=== PATIENT | female | born 1985 | race Caucasian/White ===

== ENCOUNTER 2018-10-12 13:09 | Inpatient (IN) | payer MEDICAID ==
[2018-10-12] MEDS ORDERED: LORAZEPAM 2 MG/ML VIAL IV ONE (14:17)
[2018-10-12 14:41] LABS: HEMATOCRIT 43.1 % (35.0-47.0); HEMOGLOBIN 14.8 gm/dl (11.6-16.0); MEAN CELL VOLUME 91.7 fl (81-97); MEAN CORPUSCULAR HEMOGLOBIN 31.5 pg (27-33); MEAN CORPUSCULAR HGB CONC 34.3 g/dl (32-36); PLATELET COUNT 341 K/uL (130-400)
[2018-10-12] MEDS: MVI, ADULT NO.4 WITH VIT K 10 ML, THIAMINE HCL IV 100 MG in 0.9 % SODIUM CHLORIDE 1000M... IV SCH ×6 (14:44→21:25)
--- NOTE | 2018-10-12 14:51 | Emergency Department Record ---
History of Present Illness - General Chief Complaint: Detox Evaluation Stated Complaint: ALCOHOL WITHDRAWAL Time Seen by Provider: 10/12/18 14:04 Source: Patient Mode of Arrival: Ambulatory Limitations: No limitations - History of Present Illness Initial Comments: pt is quitting alcohol cold . she has the shakes. she drinks 2-3 fifths a day since 2010. she has seizures when she stops drinking. she is havin l sided abd pain. she has a hx of pancreatitis. she has been trying to get into detox center the last 2 days MD Complaint: Other Onset/Timin -: Days(s) Associated Psychiatric Symptoms: None History of same: Yes Quality: Constant Improves With: None Worsens With: None Context: Other Associated Symptoms: Nausea, Vomiting Treatments Prior to Arrival: None - [place] Coma Scale Eye Response: (4) Open spontaneously Motor Response: (6) Obeys commands Verbal Response: (5) Oriented [place] Total: 15 - Related Data Home Medications Medication Instructions Recorded Confirmed Last Taken Lorazepam [Ativan] 0.5 mg PO ASDIR 10/12/18 10/12/18 Unknown Allergies Allergy/AdvReac Type Severity Reaction Status Date / Time No Known Drug Allergies Allergy Verified 10/12/18 13:54 Review of Systems Reviewed: No additional complaints except as noted below Constitutional: Reports: As per HPI. Denies: Chills, Fever, Malaise, Night sweats, Weakness, Weight change Eyes: Reports: As per HPI. Denies: Eye discharge, Eye pain, Photophobia, Vision change ENT: Reports: As per HPI. Denies: Congestion, Dental pain, Ear pain, Epistaxis , Hearing loss, Throat pain Respiratory: Reports: As per HPI. Denies: Cough, Dyspnea, Hemoptysis, Stridor, Wheezes Cardiovascular: Reports: As per HPI. Denies: Arrhythmia, Chest pain, Dyspnea on exertion, Edema, Murmurs, Orthopnea, Palpitations, Paroxysmal nocturnal dyspnea, Rheumatic Fever, Syncope Endocrine: Reports: As per HPI. Denies: Fatigue, Heat or cold intolerance, Polydipsia, Polyuria Gastrointestinal: Reports: As per HPI, Abdominal pain. Denies: Constipation, Diarrhea, Hematemesis, Hematochezia, Melena, Nausea, Vomiting Genitourinary: Reports: As per HPI. Denies: Abnormal menses, Discharge, Dyspareunia, Dysuria, Frequency, Hematuria, Incontinence, Retention, Urgency Musculoskeletal: Reports: As per HPI. Denies: Arthralgia, Back pain, Gout, Joint swelling, Myalgia, Neck pain Skin: Reports: As per HPI. Denies: Bruising, Change in color, Change in hair/ nails, Lesions, Pruritus, Rash Neurological: Reports: As per HPI, Tremors. Denies: Abnormal gait, Confusion, Headache, Numbness, Paresthesias, Seizure, Tingling, Vertigo, Weakness Psychiatric: Reports: As per HPI. Denies: Anxiety, Auditory hallucinations, Depression, Homicidal thoughts, Suicidal thoughts, Visual hallucinations Hematological/Lymphatic: Reports: As per HPI. Denies: Anemia, Blood Clots, Easy bleeding, Easy bruising, Swollen glands Past Medical History - SOCIAL HISTORY Smoking Status: Current every day smoker Alcohol Use: Heavy Drug Use: None - RESPIRATORY Hx Respiratory Disorders: Yes Hx Asthma: Yes Hx COPD: Yes - CARDIOVASCULAR Hx Cardio Disorders: No - NEURO Hx Neuro Disorders: No - GI Hx GI Disorders: No - Hx Genitourinary Disorders: Yes Hx Kidney Stones: Yes - ENDOCRINE Hx Endocrine Disorders: No - MUSCULOSKELETAL Hx Musculoskeletal Disorders: No - PSYCH Hx Psych Problems: Yes Hx Depression: Yes (ptsd) Family Medical History Any Significant Family History?: Yes Hx Alcohol Use: Grandparents Physical Exam - General General Appearance: Alert, Oriented x3, Cooperative, Moderate distress - Head Head exam: Normal inspection - Eye Eye exam: Normal appearance, PERRL, EOMI Pupils: Normal accommodation - ENT ENT exam: Normal exam, Mucous membranes moist, Normal external ear exam, Normal orophraynx Ear exam: Normal external inspection. negative: External canal tenderness Nasal Exam: Normal inspection. negative: Discharge, Sinus tenderness Mouth exam: Normal external inspection, Tongue normal Teeth exam: Normal inspection. negative: Dental caries Throat exam: Normal inspection. negative: Tonsillar erythema, Tonsillar exudate - Neck Neck exam: Normal inspection, Full ROM. negative: Tenderness - Respiratory Respiratory exam: Normal lung sounds bilaterally. negative: Respiratory distress - Cardiovascular Cardiovascular Exam: Regular rate, Normal rhythm, Normal heart sounds - GI/Abdominal GI/Abdominal exam: Soft, Normal bowel sounds. negative: Tenderness - Rectal Rectal exam: Deferred - exam: Deferred - Extremities Extremities exam: Normal inspection, Full ROM, Normal capillary refill. negative: Tenderness - Back Back exam: Reports: Normal inspection, Full ROM. Denies: Muscle spasm, Rash noted, Tenderness - Neurological Neurological exam: Alert, CN II-XII intact, Normal gait, Oriented X3, Other ( tremors) - Psychiatric Psychiatric exam: Anxious, Depressed - Skin Skin exam: Dry, Intact, Normal color, Warm Course Vital Signs 10/12/18 13:45 Temperature 98.4 F Pulse Rate 89 Respiratory 24 Rate Blood Pressure 129/89 Pulse Ox 99 - Reevaluation(s) Reevaluation #1: 10/12/18 18:36 pt better w ativan and fluids Medical Decision Making - Lab Data Result diagrams: 10/12/18 14:15 10/12/18 14:15 Lab Results 10/12/18 Range/Units 14:15 WBC 6.0 (4.2-12.2) K/uL RBC 4.70 (3.80-5.40) M/uL Hgb 14.8 (11.6-16.0) gm/dl Hct 43.1 (35.0-47.0) % MCV 91.7 (81-97) fl MCH 31.5 (27-33) pg MCHC 34.3 (32-36) g/dl RDW 16.0 H (11.5-14.5) % Plt Count 341 (130-400) K/uL MPV 10.0 (7.4-10.4) fl Eosinophils % Not Reportable Basophils % Not Reportable Disposition Disposition: Admit Clinical Impression: Alcohol withdrawal Qualifiers: Complication of substance-induced condition: uncomplicated Qualified Code(s): F10.230 - Alcohol dependence with withdrawal, uncomplicated Disposition: Still a Patient at [facility] Decision to Admit: Admit from ER Decision to Admit Date: 10/12/18 Decision to Admit Time: 18:37 Forms: Patient Portal Access Quality - Quality Measures Quality Measures: N/A - Blood Pressure Screening Does Patient Have Any of the Following: No Blood Pressure Classification: Pre-Hypertensive BP Reading Systolic Measurement: 129 Diastolic Measurement: 89 Screening for High Blood Pressure: < Pre-Hypertensive BP, F/U Documented > [ [id number]] Pre-Hypertensive Follow-up Interventions: Follow-up with rescreen every year.
[2018-10-12 14:52] LABS: BLOOD UREA NITROGEN 4 mg/dL (6-20); CREATININE 0.5 mg/dL (0.5-0.9); EST GLOMERULAR FILTRATION RATE > 60 mL/min
[2018-10-12 14:53] LABS: LIPASE 29 U/L (13-60)
[2018-10-12 14:54] LABS: GLUCOSE,RANDOM 91 mg/dL (74-109)
[2018-10-12] MEDS ORDERED: POTASSIUM CHLORIDE 20 MEQ TABLET PO ONE (16:51)
[2018-10-12] MEDS ORDERED: KETOROLAC 30 MG/ML VIAL IVP ONE (16:55)
[2018-10-12 17:26] LABS: BENZODIAZEPINE SCREEN URINE DETECTED; HCG,QUALITATIVE URINE NEGATIVE (NEGATIVE); TRICYCLIC ANTIDEPRESSANT SCRN NOT DETECTED
[2018-10-12 17:27] LABS: AMPHETAMINE SCREEN URINE NOT DETECTED; BARBITURATE SCREEN URINE NOT DETECTED; COCAINE SCREEN URINE NOT DETECTED; METHADONE SCREEN URINE NOT DETECTED; METHAMPHETAMINE SCREEN NOT DETECTED; OPIATE SCREEN URINE NOT DETECTED; OXYCODONE SCREEN URINE NOT DETECTED; PHENCYCLIDINE SCREEN URINE NOT DETECTED; PROPOXYPHENE SCREEN URINE NOT DETECTED; THC SCREEN URINE NOT DETECTED
[2018-10-12 17:29] LABS: URINE APPEARANCE CLEAR; URINE BILIRUBIN NEGATIVE (NEGATIVE); URINE BLOOD NEGATIVE (NEGATIVE); URINE COLOR YELLOW; URINE GLUCOSE (UA) NEGATIVE (NEGATIVE); URINE KETONE 15 mg/dL (NEGATIVE); URINE LEUKOCYTE ESTERASE NEGATIVE (NEGATIVE); URINE NITRITE NEGATIVE (NEGATIVE)
[2018-10-12 17:33] LABS: URINE BACTERIA FEW; URINE EPITHELIAL CELLS >50 (FEW); URINE MUCUS HEAVY; URINE RBC 0 - 2 (NONE SEEN); URINE WBC 0 - 2 (0-2/hpf)
[2018-10-12] MEDS ORDERED: POTASSIUM CHLORIDE 20 MEQ/15ML CUP PO ONE (18:09)
[2018-10-12] MEDS ORDERED: LORAZEPAM 2 MG/ML VIAL IV PRN (19:48)
[2018-10-12] MEDS ORDERED: ONDANSETRON HCL IV 4 MG/2 ML VIAL IVP PRN (19:48)
[2018-10-12] MEDS: 0.9 % SODIUM CHLORIDE 1000ML 1,000 ML IV PRN (19:58)
--- NOTE | 2018-10-12 20:02 | History & Physical ---
History of Present Illness - Date of Service Date of Service for History & Physical: 10/13/18 - History of Present Illness Admitting Diagnosis: alcohol withdrawal History of Present Illness: Mrs. Olvera is a 33 y/o female who presents to the ED with tremors, agitation and lethargy after quitting alcohol a few days ago. The patient says that she has been drinking 2 liters of liquor for about 10 years and has struggled with alcohol addiction. She states that she stopped drinking and is trying to take better care of her health and has been trying to get into a rehab center. The patient says yesterday she began having abdominal pains, nausea and vomiting. She also reports having chills and headaches later in the day which have gotten worse. In the ED the patient had a CT scan of her abdomen/pelvis which showed a right adnexal cyst and hepatic steatosis. The patient is admitted to the general medical floor for her symptoms of acute alcohol withdrawal. PCP: Dr. Barclay Review of Systems Constitutional: Reports: As per HPI. Denies: Chills, Fever, Malaise, Night sweats, Weakness, Weight change Eyes: Reports: As per HPI. Denies: Eye discharge, Eye pain, Photophobia, Vision change ENT: Reports: As per HPI. Denies: Congestion, Dental pain, Ear pain, Epistaxis , Hearing loss, Throat pain Respiratory: Reports: As per HPI. Denies: Cough, Dyspnea, Hemoptysis, Stridor, Wheezes Cardiovascular: Reports: As per HPI. Denies: Arrhythmia, Chest pain, Dyspnea on exertion, Edema, Murmurs, Orthopnea, Palpitations, Paroxysmal nocturnal dyspnea, Rheumatic Fever, Syncope Endocrine: Reports: As per HPI. Denies: Fatigue, Heat or cold intolerance, Polydipsia, Polyuria Gastrointestinal: Reports: As per HPI, Abdominal pain. Denies: Constipation, Diarrhea, Hematemesis, Hematochezia, Melena, Nausea, Vomiting Genitourinary: Reports: As per HPI. Denies: Abnormal menses, Discharge, Dyspareunia, Dysuria, Frequency, Hematuria, Incontinence, Retention, Urgency Musculoskeletal: Reports: As per HPI. Denies: Arthralgia, Back pain, Gout, Joint swelling, Myalgia, Neck pain Skin: Reports: As per HPI. Denies: Bruising, Change in color, Change in hair/ nails, Lesions, Pruritus, Rash Neurological: Reports: As per HPI, Tremors. Denies: Abnormal gait, Confusion, Headache, Numbness, Paresthesias, Seizure, Tingling, Vertigo, Weakness Psychiatric: Reports: As per HPI. Denies: Anxiety, Auditory hallucinations, Depression, Homicidal thoughts, Suicidal thoughts, Visual hallucinations Hematological/Lymphatic: Reports: As per HPI. Denies: Anemia, Blood Clots, Easy bleeding, Easy bruising, Swollen glands Past Medical History - SOCIAL HISTORY Smoking Status: Current every day smoker Alcohol Use: Heavy Drug Use: None - RESPIRATORY Hx Respiratory Disorders: Yes Hx Asthma: Yes Hx COPD: Yes - CARDIOVASCULAR Hx Cardio Disorders: No - NEURO Hx Neuro Disorders: No - GI Hx GI Disorders: No - Hx Genitourinary Disorders: Yes Hx Kidney Stones: Yes - ENDOCRINE Hx Endocrine Disorders: No - MUSCULOSKELETAL Hx Musculoskeletal Disorders: No - PSYCH Hx Psych Problems: Yes Hx Depression: Yes (ptsd) Family Medical History Any Significant Family History?: Yes Hx Alcohol Use: Grandparents H&P Meds/Allergies - Allergies Allergies: Allergies Allergy/AdvReac Type Severity Reaction Status Date / Time No Known Drug Allergies Allergy Verified 10/12/18 13:54 - Home Medications Home Medications Medication Instructions Recorded Confirmed Last Taken Lorazepam [Ativan] 0.5 mg PO ASDIR 10/12/18 10/12/18 Unknown - Active Medications Active Medications: Current Medications Acetaminophen (Tylenol 500mg Tab) 1,000 mg PO Q6H PRN PRN Reason: PAIN - MILD(1-4)/FEVER Multivitamins/Minerals 10 ml/Thiamine HCl 100 mg/ Sodium Chloride 1,011 mls @ 0 mls/hr IV .Q0M JASVIR Last Infusion: 10/12/18 19:13 Dose: Infused Sodium Chloride () 1,000 mls @ 125 mls/hr IV .Q8H PRN PRN Reason: LARGE VOLUME IV Last Admin: 10/12/18 19:58 Dose: 125 mls/hr Lorazepam (Ativan) 1 mg IV Q6HR PRN PRN Reason: ALCOHOL WITHDRAWAL Ondansetron HCl (Zofran) 4 mg IVP Q6H PRN PRN Reason: NAUSEA Physical Exam - Vital Signs Vital Signs: Vital Signs - Last 24 Hrs Temp Pulse Pulse Resp BP BP Pulse Ox 10/12/18 16:30 89 18 114/84 10/12/18 13:45 98.4 F 89 24 129/89 99 - General General Appearance: Alert, Oriented x3, Cooperative, Moderate distress Limitations: No limitations - Head Head exam: Normal inspection - Eye Eye exam: Normal appearance, PERRL, EOMI Pupils: Normal accommodation - ENT ENT exam: Normal exam, Mucous membranes moist, Normal external ear exam, Normal orophraynx Ear exam: Normal external inspection. negative: External canal tenderness Nasal Exam: Normal inspection. negative: Discharge, Sinus tenderness Mouth exam: Normal external inspection, Tongue normal Teeth exam: Normal inspection. negative: Dental caries Throat exam: Normal inspection. negative: Tonsillar erythema, Tonsillar exudate - Neck Neck exam: Normal inspection, Full ROM. negative: Tenderness - Respiratory Respiratory exam: Normal lung sounds bilaterally. negative: Respiratory distress - Cardiovascular Cardiovascular Exam: Regular rate, Normal rhythm, Normal heart sounds - GI/Abdominal GI/Abdominal exam: Soft, Normal bowel sounds. negative: Tenderness - Rectal Rectal exam: Deferred - exam: Deferred - Extremities Extremities exam: Normal inspection, Full ROM, Normal capillary refill. negative: Tenderness - Back Back exam: Reports: Normal inspection, Full ROM. Denies: Muscle spasm, Rash noted, Tenderness - Neurological Neurological exam: Alert, CN II-XII intact, Normal gait, Oriented X3, Other ( tremors) - Psychiatric Psychiatric exam: Anxious, Depressed - Skin Skin exam: Dry, Intact, Normal color, Warm Results - Labs Result Diagrams: 10/12/18 14:15 10/13/18 06:27 Labs Last 24 Hours: Laboratory Results - last 24 hr 10/12/18 10/12/18 10/12/18 14:15 14:15 14:15 WBC 6.0 RBC 4.70 Hgb 14.8 Hct 43.1 MCV 91.7 MCH 31.5 MCHC 34.3 RDW 16.0 H Plt Count 341 MPV 10.0 Neutrophils % 69.0 Eosinophils % Not Reportable Basophils % Not Reportable Lymphocytes 16.0 Monocytes 14.0 H Basophils 1.0 VBG pH 7.58 H Sodium 135 L Potassium 3.2 L Chloride 92 L Carbon Dioxide 23.0 Anion Gap 20.0 H BUN 4 L Creatinine 0.5 Estimated GFR > 60 Random Glucose 91 Calcium 9.7 Magnesium Lipase 29 Urine Color Urine Appearance Urine pH Ur Specific [place] Urine Protein Urine Glucose (UA) Urine Ketones Urine Blood Urine Nitrite Urine Bilirubin Urine Urobilinogen Ur Leukocyte Esterase Urine RBC Urine WBC Ur Epithelial Cells Urine Bacteria Urine Mucus Urine HCG, Qual Urine Opiates Screen Ur Oxycodone Screen Urine Methadone Screen Ur Propoxyphene Screen Ur Barbituates Screen Ur Tricyclics Screen Ur Phencyclidine Scrn Ur Amphetamine Screen U Methamphetamines Scrn U Benzodiazepines Scrn Urine Cocaine Screen Urine Cannabis Screen Ethyl Alcohol 0.010 10/12/18 10/12/18 10/14/18 17:20 17:20 06:00 WBC RBC Hgb Hct MCV MCH MCHC RDW Plt Count MPV Neutrophils % Eosinophils % Basophils % Lymphocytes Monocytes Basophils VBG pH Sodium Potassium Chloride Carbon Dioxide Anion Gap BUN Creatinine Estimated GFR Random Glucose Calcium Magnesium Cancelled Lipase Urine Color Yellow Urine Appearance Clear Urine pH >=9.0 Ur Specific [place] 1.010 Urine Protein 30 mg/dl H Urine Glucose (UA) Negative Urine Ketones 15 mg/dl H Urine Blood Negative Urine Nitrite Negative Urine Bilirubin Negative Urine Urobilinogen 1.0 Ur Leukocyte Esterase Negative Urine RBC 0 - 2 Urine WBC 0 - 2 Ur Epithelial Cells >50 Urine Bacteria Few Urine Mucus Heavy Urine HCG, Qual Negative Urine Opiates Screen Not detected Ur Oxycodone Screen Not detected Urine Methadone Screen Not detected Ur Propoxyphene Screen Not detected Ur Barbituates Screen Not detected Ur Tricyclics Screen Not detected Ur Phencyclidine Scrn Not detected Ur Amphetamine Screen Not detected U Methamphetamines Scrn Not detected U Benzodiazepines Scrn Detected Urine Cocaine Screen Not detected Urine Cannabis Screen Not detected Ethyl Alcohol VTE H&P Assessment - Risk for VTE Risk for VTE: No Risk Level: Very Low Risk Assessment Date: 10/13/18 Risk Assessment Time: 13:26 VTE Orders Placed or Will Be Placed: No VTE Reason for No Prophylaxis: Not Indicated (pt ambulatory and has no significant risk factors. ) Plan - Inpatient Certification Inpatient Certification: Admit to inpatient care: Based on my medical assessment, after consideration of patient's risk factors (age, co-morbidities and patient presenting symptoms and acuity), I expect that this patient will remain in the hospital greater than or equal to two midnights and that the services needed warrant inpatient care because: Patient Risk Factors: DT, acute Etoh withdrawal Estimated length of stay: 3 The patient may reasonably be expected to be discharged or transferred to a hospital within 96 hours after admission to [facility]. I certify that my determination is in accordance with my understanding of Medicare requirements for reasonable and necessary inpatient services. 10/13/18 13:12 - Detailed Diagnosis and Plan (1) Alcohol withdrawal Current Visit: Yes Status: Acute Qualifiers: Complication of substance-induced condition: uncomplicated Qualified Code(s ): F10.230 - Alcohol dependence with withdrawal, uncomplicated Base Code: F10.239 - ALCOHOL DEPENDENCE WITH WITHDRAWAL, UNSPECIFIED Comment: 10/13/18: - CIWA score: 6 on floor, ED score not reported. - Ativan 1mg Q4H PRN, IV fluids: Nacl 0.9% @ 125mL/hr. - AST/ALT 255/117, Mg 1.5, K+ 3.2 - Folic acid, thiamine supplemtation via IV. - CIWA scale Qshift. - Check CMP in the morning. (2) Abdominal pain Current Visit: Yes Status: Acute Base Code: R10.9 - UNSPECIFIED ABDOMINAL PAIN Comment: 10/13/18: - CT abdo/pelvis: no acute findings, hepatic steatosis, right adnexal cyst. - [place] 5/325ng Q4H PRN, cyst outpt w/u with pelvic us. (3) Hypokalemia Current Visit: Yes Status: Acute Base Code: E87.6 - HYPOKALEMIA Comment: 10/13/18: - K+ 3.2, repleted with 40 meq K IV and via IVF. - Repeat K 3.8 (4) DVT prophylaxis Current Visit: Yes Status: Acute Base Code: [id number] - Comment: 10/13/18: - Low risk encourage ambulation. (5) Smoker Current Visit: Yes Status: Acute Base Code: F17.200 - NICOTINE DEPENDENCE, UNSPECIFIED, UNCOMPLICATED Comment: 10/13/18: - Nicotine patch Q24H. (6) Full code status Current Visit: Yes Status: Acute Base Code: Z78.9 - OTHER SPECIFIED HEALTH STATUS Comment: 10/13/18: - Full code status. - Disposition Possible D/C tomorrow.
[2018-10-12] MEDS ORDERED: PNEUM 23-VAL ADULT IM ONE (20:07)
[2018-10-12] MEDS: NICOTINE14 MG/24 HOUR PATCH TD SCH (21:22)
[2018-10-12] MEDS: DIPHENHYDRAMINE HCL 50 MG/ML VIAL IVP PRN (21:22)
[2018-10-12] MEDS: LORAZEPAM 2 MG/ML VIAL IV PRN (21:22)
[2018-10-13] MEDS: LORAZEPAM 2 MG/ML VIAL IV PRN ×5 (02:28→22:32)
[2018-10-13] MEDS: ACETAMINOPHEN 500 MG TABLET PO PRN ×2 (02:30→08:15)
[2018-10-13] MEDS: 0.9 % SODIUM CHLORIDE 1000ML 1,000 ML IV PRN ×3 (04:00→22:26)
[2018-10-13 07:03] LABS: ALB/GLOB RATIO 1.5 (1.1-1.8); ALBUMIN 3.1 g/dL (4.0-5.0); ALKALINE PHOSPHATASE 95 U/L (35-104); ALT/SGPT 117 U/L (<33); AST/SGOT 255 U/L (10.0-35.0); BLOOD UREA NITROGEN 4 mg/dL (6-20); CREATININE 0.3 mg/dL (0.5-0.9); EST GLOMERULAR FILTRATION RATE > 60 mL/min; GLUCOSE,RANDOM 86 mg/dL (74-109); TOTAL PROTEIN 5.2 g/dL (6.6-8.7)
--- NOTE | 2018-10-13 08:14 | CT SCAN REPORT ---
EXAM: NONCONTRAST CT OF THE ABDOMEN AND PELVIS HISTORY: ABDOMINAL PAIN, NAUSEA AND VOMITING. PRIOR APPENDECTOMY. TECHNIQUE: Noncontrast CT of the abdomen and pelvis was obtained. Comparison: None. FINDINGS: The lung base is clear. Hepatic steatosis. Unremarkable noncontrast appearance of the adrenal glands and pancreas. Small calcific granulomas in the spleen, otherwise unremarkable. No hydronephrosis. No intrarenal or ureteral calculi. No focal colonic thickening or inflammatory change. The stomach and bowel are nondilated. No free air or significant free fluid. Right adnexal 4.4 cm cyst. The urinary bladder is only minimally distended, no appreciable abnormality. The abdominal aorta is nondilated. No mesenteric or retroperitoneal lymphadenopathy detected. No acute osseous findings. IMPRESSION: 1. NO ACUTE FINDINGS IN THE ABDOMEN OR PELVIS. 2. HEPATIC STEATOSIS. 3. RIGHT ADNEXAL CYST MEASURING 4.4 CM. THIS MAY BE FURTHER ASSESSED WITH PELVIC ULTRASOUND. JOB NUMBER: [id number] MTDD
[2018-10-13] MEDS: NICOTINE14 MG/24 HOUR PATCH TD SCH ×2 (08:15→09:10)
[2018-10-13] MEDS: DIPHENHYDRAMINE HCL 50 MG/ML VIAL IVP PRN ×3 (08:16→22:01)
[2018-10-13] MEDS: HYDROCODONE/APAP 5/325MG TABLET PO PRN ×3 (12:01→22:25)
[2018-10-14] MEDS: DIPHENHYDRAMINE HCL 50 MG/ML VIAL IVP PRN ×2 (03:33→09:15)
[2018-10-14] MEDS: LORAZEPAM 2 MG/ML VIAL IV PRN ×2 (03:34→07:58)
[2018-10-14 06:40] LABS: ALB/GLOB RATIO 1.5 (1.1-1.8); ALBUMIN 3.1 g/dL (4.0-5.0); ALKALINE PHOSPHATASE 96 U/L (35-104); ALT/SGPT 93 U/L (<33); AST/SGOT 122 U/L (10.0-35.0); BLOOD UREA NITROGEN 2 mg/dL (6-20); CREATININE 0.3 mg/dL (0.5-0.9); EST GLOMERULAR FILTRATION RATE > 60 mL/min; GLUCOSE,RANDOM 90 mg/dL (74-109); TOTAL PROTEIN 5.2 g/dL (6.6-8.7)
[2018-10-14] MEDS: HYDROCODONE/APAP 5/325MG TABLET PO PRN (07:59)
[2018-10-14] MEDS: NICOTINE14 MG/24 HOUR PATCH TD SCH (09:21)
--- NOTE | 2018-10-14 11:55 | Discharge Summary ---
Providers Discharge Summary Date: 10/14/18 Date of admission: 10/12/18 19:44 Attending physician: EZEKIEL JRODAN Primary care physician: YESSI YOUSIF M.D. Physical Exam - Vital Signs Vital Signs: Vital Signs - Last 24 Hrs Temp Pulse Pulse Resp BP BP Pulse Ox 10/14/18 10:45 99.0 F 87 18 130/87 97 10/14/18 08:12 20 10/14/18 06:00 98.1 F 79 18 127/88 98 10/14/18 01:34 98.0 F 80 18 101/65 96 10/13/18 21:00 92 H 90 16 10/13/18 20:24 98.0 F 97 H 18 121/81 98 10/13/18 18:00 98.6 F 92 H 18 122/86 100 10/13/18 16:00 99.1 F 79 18 128/91 99 10/13/18 15:24 98.1 F 120/86 - General General Appearance: Alert, Oriented x3, Cooperative, Moderate distress Limitations: No limitations - Head Head exam: Normal inspection - Eye Eye exam: Normal appearance, PERRL, EOMI Pupils: Normal accommodation - ENT ENT exam: Normal exam, Mucous membranes moist, Normal external ear exam, Normal orophraynx Ear exam: Normal external inspection, Other (minimal yellow drainage of left ear ). negative: External canal tenderness Nasal Exam: Normal inspection. negative: Discharge, Sinus tenderness Mouth exam: Normal external inspection, Tongue normal Teeth exam: Normal inspection. negative: Dental caries Throat exam: Normal inspection. negative: Tonsillar erythema, Tonsillar exudate - Neck Neck exam: Normal inspection, Full ROM. negative: Tenderness - Respiratory Respiratory exam: Normal lung sounds bilaterally. negative: Respiratory distress - Cardiovascular Cardiovascular Exam: Regular rate, Normal rhythm, Normal heart sounds Peripheral Pulses: 3+: Radial (R), Radial (L), Dorsalis Pedis (R), Dorsalis Pedis (L) - GI/Abdominal GI/Abdominal exam: Soft, Normal bowel sounds. negative: Tenderness - Rectal Rectal exam: Deferred - exam: Deferred - Extremities Extremities exam: Normal inspection, Full ROM, Normal capillary refill. negative: Tenderness - Back Back exam: Reports: Normal inspection, Full ROM. Denies: Muscle spasm, Rash noted, Tenderness - Neurological Neurological exam: Alert, CN II-XII intact, Normal gait, Oriented X3, Other ( tremors) - Psychiatric Psychiatric exam: Anxious, Depressed - Skin Skin exam: Dry, Intact, Normal color, Warm Hospitalization - Hospitalization Admission Diagnosis: alcohol withdrawal - Problem List/Discharge Diagnosis (1) Otitis of left ear Current Visit: Yes Status: Acute Base Code: H66.92 - OTITIS MEDIA, UNSPECIFIED, LEFT EAR Comment: 10/14/18: - Small amount of yellow/white drainage from left ear. - Augmentin 500.125mg PO BID x 5 days. Pt denies allergies. (2) Alcohol withdrawal Current Visit: Yes Status: Acute Discharge Diagnosis: Complication of substance-induced condition: uncomplicated Qualified Code(s ): F10.230 - Alcohol dependence with withdrawal, uncomplicated Base Code: F10.239 - ALCOHOL DEPENDENCE WITH WITHDRAWAL, UNSPECIFIED Comment: 10/14/18: - CIWA score: 6 --> asymptomatic - Ativan 1mg Q4H PRN, IV fluids: Nacl 0.9% @ 125mL/hr. - AST/ALT 255/117 --> 122/93, Mg 1.5, K+ 3.2 - Folic acid, thiamine supplemtation via IV. - CIWA scale Qshift. CMP within normal limits. (3) Abdominal pain Current Visit: Yes Status: Acute Base Code: R10.9 - UNSPECIFIED ABDOMINAL PAIN Comment: 10/14/18: - CT abdo/pelvis: no acute findings, hepatic steatosis, right adnexal cyst. - [place] 5/325mg Q4H PRN, cyst outpatient w/u with pelvic us. (4) DVT prophylaxis Current Visit: Yes Status: Acute Base Code: [id number] - Comment: 10/13/18: - Low risk encourage ambulation. (5) Smoker Current Visit: Yes Status: Acute Base Code: F17.200 - NICOTINE DEPENDENCE, UNSPECIFIED, UNCOMPLICATED Comment: 10/14/18: - Nicotine patch Q24H. - Counseled on cessation. (6) Full code status Current Visit: Yes Status: Acute Base Code: Z78.9 - OTHER SPECIFIED HEALTH STATUS Comment: 10/14/18: - Full code status. - Disposition Possible D/C tomorrow. - Hospitalization Course Hospital Course: Mrs. Olvera is a 33 y/o female who presents to the ED with tremors, agitation and lethargy after quitting alcohol a few days ago. The patient says that she has been drinking 2 liters of liquor for about 10 years and has struggled with alcohol addiction. She states that she stopped drinking and is trying to take better care of her health and has been trying to get into a rehab center. The patient says yesterday she began having abdominal pains, nausea and vomiting. She also reports having chills and headaches later in the day which have gotten worse. In the ED the patient had a CT scan of her abdomen/pelvis which showed a right adnexal cyst and hepatic steatosis. The patient is admitted to the general medical floor for her symptoms of acute alcohol withdrawal. 10/14: The patient is awake, alert and oriented. CIWA score is 4 this morning and she has no physical complaint. She states that her ears have had drainage over the past 3 days but has not been painful or had any hearing difficulty. She is stable for discharge and is to follow up with her primary care doctor within the week. She is interested in inpatient alcohol detoxification which she says she will work with her PCP to arrange. PCP: Dr. Barclay Procedures: Imaging and X-Rays 10/12/18 15:16 ABDOMEN/PELVIS WO CONTRAST [CT] Stat Abnormal Labs: Abnormal Lab Results 10/12/18 10/12/18 10/12/18 Range/Units 14:15 14:15 14:15 RDW 16.0 H (11.5-14.5) % Monocytes 14.0 H (0-9) % VBG pH 7.58 H (7.33-7.43) Sodium 135 L (136-145) mmol/L Potassium 3.2 L (3.4-4.5) mmol/L Chloride 92 L (98-107) mmol/L Anion Gap 20.0 H (7-16) BUN 4 L (6-20) mg/dL Creatinine (0.5-0.9) mg/dL Calcium (8.6-10.0) mg/dL Magnesium (1.6-2.6) mg/dL Total Bilirubin (0.2-1.0) mg/dL AST (10.0-35.0) U/L ALT (<33) U/L Total Protein (6.6-8.7) g/dL Albumin (4.0-5.0) g/dL Urine Protein (NEGATIVE) Urine Ketones (NEGATIVE) 10/12/18 10/13/18 10/13/18 Range/Units 17:20 06:27 06:27 RDW (11.5-14.5) % Monocytes (0-9) % VBG pH (7.33-7.43) Sodium (136-145) mmol/L Potassium (3.4-4.5) mmol/L Chloride 108 H (98-107) mmol/L Anion Gap (7-16) BUN 4 L (6-20) mg/dL Creatinine 0.3 L (0.5-0.9) mg/dL Calcium 7.3 L (8.6-10.0) mg/dL Magnesium 1.5 L (1.6-2.6) mg/dL Total Bilirubin 2.30 H (0.2-1.0) mg/dL AST 255 H (10.0-35.0) U/L ALT 117 H (<33) U/L Total Protein 5.2 L (6.6-8.7) g/dL Albumin 3.1 L (4.0-5.0) g/dL Urine Protein 30 mg/dl H (NEGATIVE) Urine Ketones 15 mg/dl H (NEGATIVE) 10/14/18 Range/Units 05:55 RDW (11.5-14.5) % Monocytes (0-9) % VBG pH (7.33-7.43) Sodium (136-145) mmol/L Potassium (3.4-4.5) mmol/L Chloride 110 H (98-107) mmol/L Anion Gap (7-16) BUN 2 L (6-20) mg/dL Creatinine 0.3 L (0.5-0.9) mg/dL Calcium 8.0 L (8.6-10.0) mg/dL Magnesium (1.6-2.6) mg/dL Total Bilirubin (0.2-1.0) mg/dL AST 122 H (10.0-35.0) U/L ALT 93 H (<33) U/L Total Protein 5.2 L (6.6-8.7) g/dL Albumin 3.1 L (4.0-5.0) g/dL Urine Protein (NEGATIVE) Urine Ketones (NEGATIVE) Condition at Discharge: (2) Stable Discharge Medications - Discharge Medications Prescriptions: Amoxicillin/Potassium Clav [Augmentin 500Mg/125Mg] 1 tab PO BID #10 tab Hydrocodone/APAP 5/325Mg [[place] 5Mg/325Mg] 1 each PO Q4H PRN #10 tab PRN Reason: Abdominal Pain Lorazepam [Ativan] 0.5 mg PO ASDIR PRN #10 tablet PRN Reason: Alcohol Withdrawal Ondansetron [Zofran Odt] 4 mg PO Q8H #10 tab.rapdis Home Medications: Ambulatory Orders Amoxicillin/Potassium Clav [Augmentin 500Mg/125Mg] 1 tab PO BID #10 tab [Last Taken Unknown] Hydrocodone/APAP 5/325Mg [[place] 5Mg/325Mg] 1 each PO Q4H PRN #10 tab 10/14/18 [ Last Taken Unknown] Lorazepam [Ativan] 0.5 mg PO ASDIR PRN #10 tablet 10/14/18 [Last Taken Unknown] Ondansetron [Zofran Odt] 4 mg PO Q8H #10 tab.rapdis 10/14/18 [Last Taken Unknown ] Discharge Plan - Discharge Instructions Activity at Discharge: Resume Usual Activities As Tolerated Diet at Discharge: Regular Diet Additional Instructions: Take all medications as prescribed. You have some medications that have been sent to your requested pharmacy and 2 written scripts to take with you. Do not drink alcohol with any of these medications. Please follow up with your PCP Dr. Barclay regarding your Alcohol rehab programs. Quality Measures - Quality Measures Quality Measures: Documentation of Current Medications in Medical Record, Screening for High Blood Pressure and F/U Documented - Current Medications Quality Measure: Measure #130: Documentation of Current Medications Documentation of Current Medications: <Current Medications Documented/Reviewed> [G9053] - Blood Pressure Screening Quality Measure: Screening for High Blood Pressure and Follow-Up Documented Does Patient Have Any of the Following: No, Active Dx of HTN Blood Pressure Classification: Pre-Hypertensive BP Reading Systolic Measurement: 120 Diastolic Measurement: 86 Screening for High Blood Pressure: < Pre-Hypertensive BP, F/U Documented > [ G8950] Pre-Hypertensive Follow-up Interventions: Follow-up with rescreen every year. - Elder Abuse Suspicion Index EASI Reference Information: Singh BENNETT, Malini C, Juliane D, Iris Julien.Development and validation of a tool to assist physicians identification of elder abuse: The Elder Abuse Suspicion Index (EASI ). Journal of Elder Abuse and Neglect, 2008; 20 (3): 276-300.
== END 2018-10-14 12:55 | disposition home or self-care (01) | DRG 897 ==
LOC: ER 13:09 → MEDSURG 19:44
PROVIDERS: ADMIT Internal Medicine; ATTEND Internal Medicine
DX: F10.230 Alcohol dependence with withdrawal, uncomplicated (principal); R11.2 Nausea with vomiting, unspecified; E87.6 Hypokalemia; R10.9 Unspecified abdominal pain; H66.92 Otitis media, unspecified, left ear; R25.1 Tremor, unspecified; J44.9 Chronic obstructive pulmonary disease, unspecified; J45.909 Unspecified asthma, uncomplicated; F43.10 Post-traumatic stress disorder, unspecified; F17.210 Nicotine dependence, cigarettes, uncomplicated; Z87.19 Personal history of other diseases of the digestive system
CPT/HCPCS: 74176; 80048; 80053; 80305; 80320; 81001; 81025; 82800; 83690; 83735; 85027; 90732; 96361; 96374; 96375; 99223; 99239; 99285; J1200; J1885; J2405; J3411; J7030